=== PATIENT | female | born 1960 | race Caucasian/White ===

== ENCOUNTER 2017-01-10 08:37 | Emergency (ER) | payer OTHER ==
--- NOTE | 2017-01-10 11:30 | ED CLINICAL REPORT ---
Clinical Report - Physicians/Mid Levels [facility] [address] [place] [address] 01/10/2017 8:42 Patient: AMANDA CUENCA Time Seen: 09:04. Arrived- By private vehicle. Historian- patient (and friend). HISTORY OF PRESENT ILLNESS Chief Complaint: Wants to stop drinking. Symptoms started many years ago. Duration of substance abuse- years. Substances abused: Alcohol. Last drink consisted of liquor just prior to arrival. Pt became discouraged about drinking and had SI with no plan. She states that she does not feel suicidal now. Week ETOH intake 1 gallon of whiskey Few hours ago was last drink. No fever, chills, abdominal pain, delusions or hallucinations. She has had suicidal thoughts. Has briefly considered suicide. But expresses no current suicidal thoughts. The symptoms are described as mild. No injuries noted. REVIEW OF SYSTEMS No fever, chest pain, cough, difficulty breathing or abdominal pain. PAST HISTORY Semar: PROBLEMS: Hypertension. ADDITIONAL SURGERIES: Tubal Ligation. SOCIAL HISTORY Current every day smoker. ADDITIONAL NOTES The nursing notes have been reviewed. PHYSICAL EXAM Vital Signs: 01/10/2017 11:38 BP: 140/79. HR: 102. RR: 20. O2 saturation: 98%. Temp: 97.7 F. Pain level now: 0/10. 01/10/2017 09:03 BP: 138/95. HR: 96. RR: 16. O2 saturation: 92%. Temp: 97.7 F. Appearance: Alert. No acute distress. Odor of alcohol is present. Speech is not slurred. ENT: (No icterus). CVS: Normal heart rate and rhythm. Heart sounds normal. Respiratory: No respiratory distress. Breath sounds normal. Abdomen: Soft and nontender. Skin: Normal skin color. Extremities: Extremities exhibit normal ROM. No lower extremity edema. Neuro: Alert. Mood/affect normal. Speech normal. (Normal smooth gait). LABS, X-RAYS, AND EKG Laboratory Tests: UA-Culture if indicated: (RODDY: 01/10/2017 09:55) ( MsgRcvd 01/10/2017 10:11) Final results Test Result Flag Units (Reference) URINE COLOR YELLOW URINE APPEARANCE CLEAR URINE GLUCOSE NEGATIVE (NEGATIVE) URINE BILIRUBIN NEGATIVE (NEGATIVE) URINE KETONE 1+ (NEGATIVE) URINE SPECIFIC GRAVITY 1.020 (1.010-1.030) URINE PH 6.0 (5.0-8.0) URINE PROTEIN TRACE (NEGATIVE) URINE UROBILINOGEN 0.2 EU/dL (0.2-1.0) URINE NITRITE NEGATIVE (NEGATIVE) URINE BLOOD 1+ (NEGATIVE) URINE LEUK ESTERASE NEGATIVE (NEGATIVE) URINE RBC 5-10 rbc/hpf (0-1) URINE WBC 1-3 wbc/hpf (0-1) URINE EPITHELIAL CELLS 1-3 EPI/hpf (0-5) URINE BACTERIA TRACE (<1+) (NONE SEEN) 1+ MUCUOS URINE COMMENT CULT NOT INDICATED URINE CULTURES ARE SET-UP BASED ON THE FOLLOWING CRITERIA:POSITIVE NITRITEPOSITIVE LEUKOCYTE ESTERASEGREATER THAN 10 WHITE BLOOD CELLSMODERATE (2+) OR GREATER BACTERIA CBC w Diff: (RODDY: 01/10/2017 09:30) ( MsgRcvd 01/10/2017 10:08) Final results Test Result Flag Units (Reference) WHITE BLOOD COUNT 4.7 K/uL (4.5-11.5) RED BLOOD COUNT 4.04 M/uL (4.00-5.20) HEMOGLOBIN 13.1 gm/dL (12.0-16.0) HEMATOCRIT 39.3 % (36.0-46.0) MEAN CELL VOLUME 97 fL (80-100) MEAN CORPUSCULAR HGB 33 pg (26-34) MEAN CORPUSCULAR HGB CONC 33 g/dL (31-37) RED CELL DISTRIBUTION WIDTH 15.4 H % (11.6-14.8) PLATELET COUNT 391 K/uL (150-400) NEUTROPHIL % 55.3 % (50-75) LYMPH % 35.6 % (25-40) MONO % 6.0 % (3-14) EOSINOPHIL % 2.4 % (0-4) BASOPHIL % 0.7 % (0-2) Urine Drug Screen: (RODDY: 01/10/2017 09:55) ( MsgRcvd 01/10/2017 10:31) Final results Test Result Flag Units (Reference) AMPHETAMINE/METHAMPHETAMINE NEGATIVE (NEGATIVE) BARBITURATE NEGATIVE (NEGATIVE) BENZODIAZEPINE NEGATIVE (NEGATIVE) CANNABINOID NEGATIVE (NEGATIVE) COCAINE NEGATIVE (NEGATIVE) ECSTASY NEGATIVE (NEGATIVE) METHADONE NEGATIVE (NEGATIVE) OPIATE NEGATIVE (NEGATIVE) The urine drug screen is a qualitative screening test fordrug overdose and abuse. All screen results should beconsidered as presumptive.Drugs screened for are as follows:BenzodiazepinesCocaineAmphetamines/MetamphetaminesTHC (Tetrahydrocannabinol)OpiatesBarbituratesEcstasyMethadonePositive results are unconfirmed. For confirmation, notifythe lab for the specimen to be sent to the reference lab.All confirmations must be performed by a differentmethodology.The ingestion of natural herbal and plant productscontaining Ephedra/Ephedra metabolites can produce in urineone or more substances capable of cross reacting withamphetamine/methamphetamine immunoassays. These testsprovide a preliminary result only. A more specificalternative chemical method must be used to obtain aconfirmed analytical result. CMP: (RODDY: 01/10/2017 09:30) ( MsgRcvd 01/10/2017 10:12) Final results Test Result Flag Units (Reference) GLUCOSE 190 H mg/dL (70-110) BUN 15 mg/dL (7-18) CREATININE 0.8 mg/dL (0.6-1.3) Estimated GFR >60 mL/min Estimated GFR- >60 mL/min Note: Persistent reduction over 3 months in eGFR<60 mL/min/1.73 m2 defines CKD. Patients with eGFR values>=60 mL/min/1.73 m2 may also have CKD if evidence ofpersistent proteinuria. Additional information may be foundat www.kidney.org. SODIUM 144 mmol/L (136-145) POTASSIUM 3.2 L mmol/L (3.5-5.1) CHLORIDE 104 mmol/L (98-107) CARBON DIOXIDE 19 L mmol/L (21-32) CALCIUM 8.8 mg/dL (8.5-10.1) TOTAL PROTEIN 7.9 g/dL (6.4-8.2) ALBUMIN 3.8 g/dL (3.3-5.0) BILIRUBIN, TOTAL 0.2 mg/dL (0.0-1.0) ALKALINE PHOSPHATASE 97 U/L (46-116) AST (SGOT) 39 H U/L (15-37) ALT (SGPT) 22 U/L (12-78) ETHYL ALCOHOL 352 H mg/dL (3-10) . PROGRESS AND PROCEDURES Course of Care: Ms Cuenca is an alcoholic who actively wishes treatment. She has had difficulty obtaining that treatment. She called a [employer] phone number but "didn't have the right insurance." She admits to telling the family she felt like killing herself but states that she had no plan and did not intend to harm her self. She is given two referrals. Disposition: Discharged. Condition: stable. CLINICAL IMPRESSION Alcohol intoxication. HISTORY OF SUICIDAL IDEATION. INSTRUCTIONS (CALL THE [facility] OFFICE FOR ALCOHOL EVALUATION IF THEY CANNOT HELP THEN CALL THE [facility]. THEY ARE HARD TO GET INTO BUT WILL WORK WITH ANY OR NO INSURANCE YOU TOLD ME THAT YOU ARE NOT SERIOUSLY THINKING OF HURTING YOURSELF AND THAT WOULD NOT HARM YOURSELF. IF YOU CHANGE YOUR MIND CALL 911 OR COME TO THE ED. WE CAN HELP). (Electronically signed by Dionisio Davila MD 01/12/2017 11:08)
--- NOTE | 2017-01-10 11:30 | ED NURSING NOTES ---
Clinical Report - Nurses [facility] [place] [address] 01/10/2017 8:42 Patient: AMANDA CUENCA TRIAGE Triage time 09:0. Acuity: LEVEL 2. Chief Complaint: SUICIDAL THOUGHTS. Alert. No acute distress. RONNIE COMA SCORE: [place] Coma Scale: 15- eyes open spontaneously (4); best verbal response- oriented x 4 (5); best motor response- obeys commands (6). --09:11 Camilla Singh R.N. 09:03 01/10/17. BP: 138/95. HR: 96. RR: 16. O2 saturation: 92% on room air. Temp: 97.7 F (oral). Pain level now 0/10. --09:11 Camilla Singh R.N. Weight: 47.6 kg stated. Height/Length: 63 inches Per Patient. BMI: 18.6. --09:04 Camilla Singh R.N. Medications Antihypertensive. --09:06 Camilla Singh R.N. Allergies No Known Drug Allergy. --09:07 Camilla Singh R.N. History Historian: patient. Primary physician (desean). ( brought in with sister in law. Sister in law states pt has been making suicidal statements today, denies any suicide attempts. Pt has difficulty answering questions in triage, and keeps stating "Stop talking, I want the noise to stop". Sister states pt was sober for several months and has been drinking the past few days.). Onset: today. Treatment PICKLER HELPER: None. SOCIAL HX: Heavy tobacco smoker (cigarette)- 1 pack per day. Regular alcohol use. No drug use. ABUSE ASSESSMENT: Abuse assessment: The patient was asked "Do you feel safe in your home?". No report of abuse. SELF HARM ASSESSMENT: A self harm assessment was performed. The patient answered "no" to the question "Do you have thoughts of harming or killing yourself?", "Are you here because you tried to hurt yourself?", "Have you ever tried to hurt yourself before today?", "Have you recently had thoughts about harming or killing others?" and "Do you have any dangerous items in your possession?". The family reported the patient's behavior included suicidal comments. --09:11 Camilla Singh R.N. PROBLEMS: Hypertension. --09:08 Camilla Singh R.N. ADDITIONAL SURGERIES: Tubal Ligation. --09:08 Camilla Singh R.N. Interventions ID band on patient. To treatment room. --09:11 Camilla Singh R.N. PHYSICAL ASSESSMENT Ambulatory to room. GENERAL / NEURO / PSYCH: Alert. Oriented X 4. Appears depressed and affect appears flat. Patient appears unkempt. RESPIRATORY: Respirations not labored. CVS: Capillary refill less than 2 seconds. GI / : Abdomen soft. SKIN: Skin is warm and dry. --09:11 Camilla Singh R.N. NURSING PROGRESS NOTES Patient gowned. Suicide precautions initiated: a safety sweep of the room has been completed. Family at bedside, clothing / valuables removed and placed in the safe. --09:11 Camilla Singh R.N. Patient ready for evaluation- chart flagged. --09:11 Camilla Singh R.N. DISPOSITION / DISCHARGE 11:38 01/10/17. BP: 140/79 (small adult cuff) taken on the right arm, via an automated monitor, while sitting. HR: 102. RR: 20. O2 saturation: 98% on room air. Temp: 97.7 F. Pain level now: 010. --11:39 [facility] Departure time: 11:40 Jan 10 2017. Condition at departure: improved and stable. No learning barriers present. Discharge instructions provided and reviewed with the patient. Patient and environmental construction engineer verbalized understanding. Written instructions provided in [place]. The patient was discharged by the physician. She was discharged home and accompanied by environmental construction engineer. She left the Emergency Department ambulatory and via private vehicle. Negative Cleaner driving. --18:53 Thelma Solorzano R.N. Locked/Released at 01/10/2017 18:53 by Thelma Solorzano R.N.
--- NOTE | 2017-01-10 11:30 | ED NURSING NOTES ---
Clinical Report - Nurses [place] [address] 01/10/2017 8:42 Patient: AMANDA CUENCA TRIAGE Triage time 09:0. Acuity: LEVEL 2. Chief Complaint: SUICIDAL THOUGHTS. Alert. No acute distress. RONNIE COMA SCORE: [place] Coma Scale: 15- eyes open spontaneously (4); best verbal response- oriented x 4 (5); best motor response- obeys commands (6). --09:11 Camilla Singh R.N. 09:03 01/10/17. BP: 138/95. HR: 96. RR: 16. O2 saturation: 92% on room air. Temp: 97.7 F (oral). Pain level now 0/10. --09:11 Camilla Singh R.N. Weight: 47.6 kg stated. Height/Length: 63 inches Per Patient. BMI: 18.6. --09:04 Camilla Singh R.N. Medications Antihypertensive. --09:06 Camilla Singh R.N. Allergies No Known Drug Allergy. --09:07 Camilla Singh R.N. History Historian: patient. Primary physician (desean). ( brought in with sister in law. Sister in law states pt has been making suicidal statements today, denies any suicide attempts. Pt has difficulty answering questions in triage, and keeps stating "Stop talking, I want the noise to stop". Sister states pt was sober for several months and has been drinking the past few days.). Onset: today. Treatment PERSONAL INJURY ATTORNEY: None. SOCIAL HX: Heavy tobacco smoker (cigarette)- 1 pack per day. Regular alcohol use. No drug use. ABUSE ASSESSMENT: Abuse assessment: The patient was asked "Do you feel safe in your home?". No report of abuse. SELF HARM ASSESSMENT: A self harm assessment was performed. The patient answered "no" to the question "Do you have thoughts of harming or killing yourself?", "Are you here because you tried to hurt yourself?", "Have you ever tried to hurt yourself before today?", "Have you recently had thoughts about harming or killing others?" and "Do you have any dangerous items in your possession?". The family reported the patient's behavior included suicidal comments. --09:11 Camilla Singh R.N. PROBLEMS: Hypertension. --09:08 Camilla Singh R.N. ADDITIONAL SURGERIES: Tubal Ligation. --09:08 Camilla Singh R.N. Interventions ID band on patient. To treatment room. --09:11 Camilla Singh R.N. PHYSICAL ASSESSMENT Ambulatory to room. GENERAL / NEURO / PSYCH: Alert. Oriented X 4. Appears depressed and affect appears flat. Patient appears unkempt. RESPIRATORY: Respirations not labored. CVS: Capillary refill less than 2 seconds. GI / : Abdomen soft. SKIN: Skin is warm and dry. --09:11 Camilla Singh R.N. NURSING PROGRESS NOTES Patient gowned. Suicide precautions initiated: a safety sweep of the room has been completed. Family at bedside, clothing / valuables removed and placed in the safe. --09:11 Camilla Singh R.N. Patient ready for evaluation- chart flagged. --09:11 Camilla Singh R.N. DISPOSITION / DISCHARGE 11:38 01/10/17. BP: 140/79 (small adult cuff) taken on the right arm, via an automated monitor, while sitting. HR: 102. RR: 20. O2 saturation: 98% on room air. Temp: 97.7 F. Pain level now: 010. --11:39 [facility] Departure time: 11:40 Jan 10 2017. Condition at departure: improved and stable. No learning barriers present. Discharge instructions provided and reviewed with the patient. Patient and oil separator verbalized understanding. Written instructions provided in Brazilian. The patient was discharged by the physician. She was discharged home and accompanied by oil separator. She left the Emergency Department ambulatory and via private vehicle. Handle Bar Assembler driving. --18:53 Thelma Solorzano R.N. Locked/Released at 01/10/2017 18:53 by Thelma Solorzano R.N.
--- NOTE | 2017-01-10 11:30 | ED ORDER SUMMARY ---
..... Patient: AMANDA CUENCA OrderSheet [facility] VisitID: [id number] [address] [place] [address] 56y, F Registration Date/Time: 01/10/2017 ORDER SHEET Weight: 47.6 kg (stated) Allergies: No Known Drug Allergy GENERAL ORDERS: CBC w Diff Urgent (09:01/10/2017 Ju[place] FRIAS) (Ack 9:14 OSnell) (9:33 KWilliams R.N.) CMP Urgent (:01/10/2017 [place] FRIAS) (Ack 9:14 OSnell) (9:34 KWilliams R.N.) UA-Culture if indicated Urgent (:01/10/2017 [place] FRIAS) (Ack 9:14 OSnell) (10:08 KWilliams R.N.) Ethyl Alcohol Urgent (09:01/10/2017 [place] FRIAS) (Ack 9:14 OSnell) (9:34 KWilliams R.N.) Urine Drug Screen Urgent (09:01/10/2017 Juana FRIAS) (Ack 9:14 OSnell) (10:08 KWilliams R.N.) MEDICATION ORDERS: IV FLUIDS: ORDER SHEET NOTES: [Electronically signed by Thelma Solorzano R.N. (18:53 01/10/2017)] [Electronically signed by Dionisio Davila MD (11:08 01/12/2017)] [Electronically locked/signed by Thelma Solorzano R.N. (18:53 01/10/2017)]
--- NOTE | 2017-01-10 11:30 | ED ORDER SUMMARY ---
..... Patient: AMANDA CUENCA OrderSheet [facility] VisitID: [id number] [address] [place] [address] 56y, F Registration Date/Time: 01/10/2017 ORDER SHEET Weight: 47.6 kg (stated) Allergies: No Known Drug Allergy GENERAL ORDERS: CBC w Diff Urgent (09:01/10/2017 [place]ana FRIAS) (Ack 9:14 OSnell) (9:33 KWilliams R.N.) CMP Urgent (:01/10/2017 Juana FRIAS) (Ack 9:14 OSnell) (9:34 KWilliams R.N.) UA-Culture if indicated Urgent (:01/10/2017 Juana FRIAS) (Ack 9:14 OSnell) (10:08 KWilliams R.N.) Ethyl Alcohol Urgent (09:01/10/2017 Juana FRIAS) (Ack 9:14 OSnell) (9:34 KWilliams R.N.) Urine Drug Screen Urgent (09:01/10/2017 Juana FRIAS) (Ack 9:14 OSnell) (10:08 KWilliams R.N.) MEDICATION ORDERS: IV FLUIDS: ORDER SHEET NOTES: [Electronically signed by Thelma Solorzano R.N. (18:53 01/10/2017)] [Electronically signed by Dionisio Davila MD (11:08 01/12/2017)] [Electronically locked/signed by Thelma Solorzano R.N. (18:53 01/10/2017)]
--- NOTE | 2017-01-10 11:30 | ED CLINICAL REPORT ---
Clinical Report - Physicians/Mid Levels [facility] [address] [place] [address] 01/10/2017 8:42 Patient: AMANDA CUENCA Time Seen: 09:04. Arrived- By private vehicle. Historian- patient (and friend). HISTORY OF PRESENT ILLNESS Chief Complaint: Wants to stop drinking. Symptoms started many years ago. Duration of substance abuse- years. Substances abused: Alcohol. Last drink consisted of liquor just prior to arrival. Pt became discouraged about drinking and had SI with no plan. She states that she does not feel suicidal now. Week ETOH intake 1 gallon of whiskey Few hours ago was last drink. No fever, chills, abdominal pain, delusions or hallucinations. She has had suicidal thoughts. Has briefly considered suicide. But expresses no current suicidal thoughts. The symptoms are described as mild. No injuries noted. REVIEW OF SYSTEMS No fever, chest pain, cough, difficulty breathing or abdominal pain. PAST HISTORY Semar: PROBLEMS: Hypertension. ADDITIONAL SURGERIES: Tubal Ligation. SOCIAL HISTORY Current every day smoker. ADDITIONAL NOTES The nursing notes have been reviewed. PHYSICAL EXAM Vital Signs: 01/10/2017 11:38 BP: 140/79. HR: 102. RR: 20. O2 saturation: 98%. Temp: 97.7 F. Pain level now: 0/10. 01/10/2017 09:03 BP: 138/95. HR: 96. RR: 16. O2 saturation: 92%. Temp: 97.7 F. Appearance: Alert. No acute distress. Odor of alcohol is present. Speech is not slurred. ENT: (No icterus). CVS: Normal heart rate and rhythm. Heart sounds normal. Respiratory: No respiratory distress. Breath sounds normal. Abdomen: Soft and nontender. Skin: Normal skin color. Extremities: Extremities exhibit normal ROM. No lower extremity edema. Neuro: Alert. Mood/affect normal. Speech normal. (Normal smooth gait). LABS, X-RAYS, AND EKG Laboratory Tests: UA-Culture if indicated: (RODDY: 01/10/2017 09:55) ( MsgRcvd 01/10/2017 10:11) Final results Test Result Flag Units (Reference) URINE COLOR YELLOW URINE APPEARANCE CLEAR URINE GLUCOSE NEGATIVE (NEGATIVE) URINE BILIRUBIN NEGATIVE (NEGATIVE) URINE KETONE 1+ (NEGATIVE) URINE SPECIFIC GRAVITY 1.020 (1.010-1.030) URINE PH 6.0 (5.0-8.0) URINE PROTEIN TRACE (NEGATIVE) URINE UROBILINOGEN 0.2 EU/dL (0.2-1.0) URINE NITRITE NEGATIVE (NEGATIVE) URINE BLOOD 1+ (NEGATIVE) URINE LEUK ESTERASE NEGATIVE (NEGATIVE) URINE RBC 5-10 rbc/hpf (0-1) URINE WBC 1-3 wbc/hpf (0-1) URINE EPITHELIAL CELLS 1-3 EPI/hpf (0-5) URINE BACTERIA TRACE (<1+) (NONE SEEN) 1+ MUCUOS URINE COMMENT CULT NOT INDICATED URINE CULTURES ARE SET-UP BASED ON THE FOLLOWING CRITERIA:POSITIVE NITRITEPOSITIVE LEUKOCYTE ESTERASEGREATER THAN 10 WHITE BLOOD CELLSMODERATE (2+) OR GREATER BACTERIA CBC w Diff: (RODDY: 01/10/2017 09:30) ( MsgRcvd 01/10/2017 10:08) Final results Test Result Flag Units (Reference) WHITE BLOOD COUNT 4.7 K/uL (4.5-11.5) RED BLOOD COUNT 4.04 M/uL (4.00-5.20) HEMOGLOBIN 13.1 gm/dL (12.0-16.0) HEMATOCRIT 39.3 % (36.0-46.0) MEAN CELL VOLUME 97 fL (80-100) MEAN CORPUSCULAR HGB 33 pg (26-34) MEAN CORPUSCULAR HGB CONC 33 g/dL (31-37) RED CELL DISTRIBUTION WIDTH 15.4 H % (11.6-14.8) PLATELET COUNT 391 K/uL (150-400) NEUTROPHIL % 55.3 % (50-75) LYMPH % 35.6 % (25-40) MONO % 6.0 % (3-14) EOSINOPHIL % 2.4 % (0-4) BASOPHIL % 0.7 % (0-2) Urine Drug Screen: (RODDY: 01/10/2017 09:55) ( MsgRcvd 01/10/2017 10:31) Final results Test Result Flag Units (Reference) AMPHETAMINE/METHAMPHETAMINE NEGATIVE (NEGATIVE) BARBITURATE NEGATIVE (NEGATIVE) BENZODIAZEPINE NEGATIVE (NEGATIVE) CANNABINOID NEGATIVE (NEGATIVE) COCAINE NEGATIVE (NEGATIVE) ECSTASY NEGATIVE (NEGATIVE) METHADONE NEGATIVE (NEGATIVE) OPIATE NEGATIVE (NEGATIVE) The urine drug screen is a qualitative screening test fordrug overdose and abuse. All screen results should beconsidered as presumptive.Drugs screened for are as follows:BenzodiazepinesCocaineAmphetamines/MetamphetaminesTHC (Tetrahydrocannabinol)OpiatesBarbituratesEcstasyMethadonePositive results are unconfirmed. For confirmation, notifythe lab for the specimen to be sent to the reference lab.All confirmations must be performed by a differentmethodology.The ingestion of natural herbal and plant productscontaining Ephedra/Ephedra metabolites can produce in urineone or more substances capable of cross reacting withamphetamine/methamphetamine immunoassays. These testsprovide a preliminary result only. A more specificalternative chemical method must be used to obtain aconfirmed analytical result. CMP: (RODDY: 01/10/2017 09:30) ( MsgRcvd 01/10/2017 10:12) Final results Test Result Flag Units (Reference) GLUCOSE 190 H mg/dL (70-110) BUN 15 mg/dL (7-18) CREATININE 0.8 mg/dL (0.6-1.3) Estimated GFR >60 mL/min Estimated GFR- >60 mL/min Note: Persistent reduction over 3 months in eGFR<60 mL/min/1.73 m2 defines CKD. Patients with eGFR values>=60 mL/min/1.73 m2 may also have CKD if evidence ofpersistent proteinuria. Additional information may be foundat www.kidney.org. SODIUM 144 mmol/L (136-145) POTASSIUM 3.2 L mmol/L (3.5-5.1) CHLORIDE 104 mmol/L (98-107) CARBON DIOXIDE 19 L mmol/L (21-32) CALCIUM 8.8 mg/dL (8.5-10.1) TOTAL PROTEIN 7.9 g/dL (6.4-8.2) ALBUMIN 3.8 g/dL (3.3-5.0) BILIRUBIN, TOTAL 0.2 mg/dL (0.0-1.0) ALKALINE PHOSPHATASE 97 U/L (46-116) AST (SGOT) 39 H U/L (15-37) ALT (SGPT) 22 U/L (12-78) ETHYL ALCOHOL 352 H mg/dL (3-10) . PROGRESS AND PROCEDURES Course of Care: Ms Cuenca is an alcoholic who actively wishes treatment. She has had difficulty obtaining that treatment. She called a rumr: turn off the lightst phone number but "didn't have the right insurance." She admits to telling the family she felt like killing herself but states that she had no plan and did not intend to harm her self. She is given two referrals. Disposition: Discharged. Condition: stable. CLINICAL IMPRESSION Alcohol intoxication. HISTORY OF SUICIDAL IDEATION. INSTRUCTIONS (CALL THE [facility] OFFICE FOR ALCOHOL EVALUATION IF THEY CANNOT HELP THEN CALL THE [facility]. THEY ARE HARD TO GET INTO BUT WILL WORK WITH ANY OR NO INSURANCE YOU TOLD ME THAT YOU ARE NOT SERIOUSLY THINKING OF HURTING YOURSELF AND THAT WOULD NOT HARM YOURSELF. IF YOU CHANGE YOUR MIND CALL 911 OR COME TO THE ED. WE CAN HELP). (Electronically signed by Dionisio Davila MD 01/12/2017 11:08)
--- NOTE | 2017-01-12 11:08 | ED DISCHARGE INSTRUCTIONS ---
Patient: AMANDA CUENCA General Instructions [facility] VisitID: [id number] [place] [address] 56y, F Registration Date/Time: 01/10/2017 Alcohol intoxication. HISTORY OF SUICIDAL IDEATION. INSTRUCTIONS (CALL THE [facility] OFFICE FOR ALCOHOL EVALUATION IF THEY CANNOT HELP THEN CALL THE [facility]. THEY ARE HARD TO GET INTO BUT WILL WORK WITH ANY OR NO INSURANCE YOU TOLD ME THAT YOU ARE NOT SERIOUSLY THINKING OF HURTING YOURSELF AND THAT WOULD NOT HARM YOURSELF. IF YOU CHANGE YOUR MIND CALL 911 OR COME TO THE ED. WE CAN HELP). ADDITIONAL INFORMATION Alcohol Intoxication Alcohol intoxication occurs when you drink alcohol faster than your liver can remove it from your system. Alcohol intoxication affects your judgment and coordination. Very high blood alcohol levels can cause coma, very slow breathing and even . If you drink alcohol every day, this may gradually cause permanent damage to your liver, brain, heart, pancreas and other organs. Alcohol use during may cause permanent damage to the growing baby. Home Care: Do not drink any more alcohol. DO NOT DRIVE until all effects of the alcohol have worn off. Get lots of rest over the next few days. Drink plenty of water and other non-alcoholic liquids. Try to eat regular meals. If you have been drinking heavily on a daily basis, you may go through alcohol withdrawl. This is also called the shakes or DTs. The usual symptoms last 3 to 4 days and may include nervousness, shakiness, nausea, sweating or sleeplessness. During this time, it is best that you stay with family or friends who can help and support you. You can also admit yourself to a residential detox program. If your symptoms are severe, contact your doctor for medicines to help. Follow Up: If alcohol is causing a problem in your life, these and other organizations can help you: Alcoholics Anonymous offers support through a self-help fellowship. There are no dues or fees. See the Yellow Pages and call for time and place of meetings. www.aa.org [employer] offers support to families of alcohol users. 652.993.9576 www.al-anon.org National [place] On Alcoholism And Drug Dependence 405-175-2680 www.ncadd.org There are also inpatient or residential alcohol detox programs. Check the Internet or phonebook Yellow Pages under Drug Abuse & Treatment Centers. Get Prompt Medical Attention if any of the following occur: there) You have been given the following additional information: Alcohol Intoxication (Electronically signed by Dionisio Davila MD 01/12/2017 11:08)
--- NOTE | 2017-01-12 11:08 | ED MED RECONCILIATION SUMMARY ---
Patient: AMANDA CUENCA Medication Reconciliation Report [facility] VisitID: [id number] [address] [place] [address] 56y, F Registration Date/Time: 01/10/2017 Weight: 47.6 kg Height/Length: 63 in. BMI: 18.6 ALLERGIES: No Known Drug Allergy The patient's Home Medications are listed below: THE FOLLOWING MEDICATIONS NEED TO BE RECONCILED: Antihypertensive The source(s) of the original Home Medication information: Not obtained. The following Medications were given to the patient in the Emergency Department: None. The following Medications were prescribed to the patient: None.
--- NOTE | 2017-01-12 11:08 | ED DISCHARGE INSTRUCTIONS ---
Patient: AMANDA CUENCA General Instructions [facility] VisitID: [id number] [place] [address] 56y, F Registration Date/Time: 01/10/2017 Alcohol intoxication. HISTORY OF SUICIDAL IDEATION. INSTRUCTIONS (CALL THE [facility] OFFICE FOR ALCOHOL EVALUATION IF THEY CANNOT HELP THEN CALL THE [facility]. THEY ARE HARD TO GET INTO BUT WILL WORK WITH ANY OR NO INSURANCE YOU TOLD ME THAT YOU ARE NOT SERIOUSLY THINKING OF HURTING YOURSELF AND THAT WOULD NOT HARM YOURSELF. IF YOU CHANGE YOUR MIND CALL 911 OR COME TO THE ED. WE CAN HELP). ADDITIONAL INFORMATION Alcohol Intoxication Alcohol intoxication occurs when you drink alcohol faster than your liver can remove it from your system. Alcohol intoxication affects your judgment and coordination. Very high blood alcohol levels can cause coma, very slow breathing and even . If you drink alcohol every day, this may gradually cause permanent damage to your liver, brain, heart, pancreas and other organs. Alcohol use during may cause permanent damage to the growing baby. Home Care: Do not drink any more alcohol. DO NOT DRIVE until all effects of the alcohol have worn off. Get lots of rest over the next few days. Drink plenty of water and other non-alcoholic liquids. Try to eat regular meals. If you have been drinking heavily on a daily basis, you may go through alcohol withdrawl. This is also called the shakes or DTs. The usual symptoms last 3 to 4 days and may include nervousness, shakiness, nausea, sweating or sleeplessness. During this time, it is best that you stay with family or friends who can help and support you. You can also admit yourself to a residential detox program. If your symptoms are severe, contact your doctor for medicines to help. Follow Up: If alcohol is causing a problem in your life, these and other organizations can help you: Alcoholics Anonymous offers support through a self-help fellowship. There are no dues or fees. See the Yellow Pages and call for time and place of meetings. www.aa.org [employer] offers support to families of alcohol users. 824.582.7738 www.al-anon.org [employer] [place] On Alcoholism And Drug Dependence 673-178-1721 www.ncadd.org There are also inpatient or residential alcohol detox programs. Check the Internet or phonebook Yellow Pages under Drug Abuse & Treatment Centers. Get Prompt Medical Attention if any of the following occur: there) You have been given the following additional information: Alcohol Intoxication (Electronically signed by Dionisio Davila MD 01/12/2017 11:08)
--- NOTE | 2017-01-12 11:08 | ED MED RECONCILIATION SUMMARY ---
Patient: AMANDA CUENCA Medication Reconciliation Report [facility] VisitID: [id number] [address] [place] [address] 56y, F Registration Date/Time: 01/10/2017 Weight: 47.6 kg Height/Length: 63 in. BMI: 18.6 ALLERGIES: No Known Drug Allergy The patient's Home Medications are listed below: THE FOLLOWING MEDICATIONS NEED TO BE RECONCILED: Antihypertensive The source(s) of the original Home Medication information: Not obtained. The following Medications were given to the patient in the Emergency Department: None. The following Medications were prescribed to the patient: None.
--- NOTE | 2017-01-12 11:08 | ED MAR SUMMARY ---
..... Medication Administration Record [facility] [address] [place], [place] [id number] Patient: AMANDA CUENCA Visit ID: [id number] 56y, F Weight: 47.6 kg Height/Length: 63 in BMI: 18.6 ALLERGIES: No Known Drug Allergy
--- NOTE | 2017-01-12 11:08 | ED MAR SUMMARY ---
..... Medication Administration Record [facility] [address] [place], [place] [id number] Patient: AMANDA CUENCA Visit ID: [id number] 56y, F Weight: 47.6 kg Height/Length: 63 in BMI: 18.6 ALLERGIES: No Known Drug Allergy
== END 2017-01-10 11:40 | disposition home or self-care (01) ==
LOC: ED SRH 08:37
DX: F10.229 Alcohol dependence with intoxication, unspecified (principal); R45.851 Suicidal ideations; I10 Essential (primary) hypertension; F17.200 Nicotine dependence, unspecified, uncomplicated; Y90.8 Blood alcohol level of 240 mg/100 ml or more
CPT/HCPCS: 90004; 90100; 92010; 92760; 92761; 92762; 92763; 92764; 92765; 92766; 92767; 95059